=== PATIENT | male | born 1985 | race Two or more races ===

== ENCOUNTER 2017-04-04 19:44 | Emergency (ER) | payer SELFPAY ==
[~2017-04-04] VITALS: Ht 160 cm; Wt 78.0 kg
[2017-04-04 19:50] VITALS: BP 150/96
[2017-04-04] MEDS ORDERED: diphenhydrAMINE HCL 25 MG CAPSULE PO ONE (20:00)
[2017-04-04] MEDS ORDERED: methylPREDNISolone SOD SUCC PF 125 MG/2 ML VIAL. IM ONE (20:00)
[2017-04-04] MEDS ORDERED: PRED20TA PO (20:02)
--- NOTE | 2017-04-04 20:02 | PHYS DOC ---
Past Medical History Past Medical History: No Pertinent History Past Surgical History: No Surgical History Alcohol Use: None Drug Use: None Adult General Chief Complaint Chief Complaint: ITCHING HPI HPI Patient is a 32 year old male presents emergency Department with a rash on bilateral upper extremities that he has had since Mother's Day. He states that it did start on his lower legs in which he had treated for poison shadi. He denies any fever, chills or any nausea vomiting. The rash does appear to be pustular type. There is no current drainage from the sites. The areas do appear to be slightly red. Review of Systems Review of Systems Constitutional: Denies fever or chills [] Eyes: Denies change in visual acuity, redness, or eye pain [] HENT: Denies nasal congestion or sore throat [] Respiratory: Denies cough or shortness of breath [] Cardiovascular: No additional information not addressed in HPI [] GI: Denies abdominal pain, nausea, vomiting, bloody stools or diarrhea [] : Denies dysuria or hematuria [] Musculoskeletal: Denies back pain or joint pain [] Integument: rash denies skin lesions [] Neurologic: Denies headache, focal weakness or sensory changes [] Endocrine: Denies polyuria or polydipsia [] Allergies Allergies Allergies Coded Allergies Type Severity Reaction Last Updated Verified No Known Drug Allergies 08/31/15 No Physical Exam Physical Exam Constitutional: Well developed, well nourished, no acute distress, non-toxic appearance. [] HENT: Normocephalic, atraumatic, bilateral external ears normal, oropharynx moist, no oral exudates, nose normal. [] Eyes: PERRLA, EOMI, conjunctiva normal, no discharge. [] Neck: Normal range of motion, no tenderness, supple, no stridor. [] Cardiovascular:Heart rate regular rhythm, no murmur [] Lungs & Thorax: Bilateral breath sounds clear to auscultation [] Skin: Warm, dry, no erythema, Patient with red raised pustular type rash noted on bilateral upper extremities. No drainage or discharge coming from the site. Back: No tenderness Extremities: No tenderness, no cyanosis, no clubbing, ROM intact, no edema. [] Neurologic: Alert and oriented X 3, normal motor function, normal sensory function, no focal deficits noted. [] Psychologic: Affect normal, judgement normal, mood normal. [] EKG EKG [] Radiology/Procedures Radiology/Procedures [] Course & Med Decision Making Course & Med Decision Making Pertinent Labs and Imaging studies reviewed. (See chart for details) Patient will be provided with a Solu-Medrol IM injection here in the emergency department. He will be instructed to use Benadryl 25 mg at home every 6 hours. He was instructed this medication will cause drowsiness do not take any be alert and oriented. He'll be discharged home with a perception for prednisone. He was also recommended to use calamine lotion on the areas to help dry the pustulous up. A shunt was also encouraged to keep the areas clean dry and cool as this will prevent further itching and irritation. Patient agrees with discharge instructions treatment regimens and follow-up recommendations. [] Dragon Disclaimer Dragon Disclaimer This electronic medical record was generated, in whole or in part, using a voice recognition dictation system. Departure Departure Impression: Primary Impression: Contact dermatitis Disposition: HOME, SELF-CARE Condition: STABLE Referrals: NO PCP (PCP) Patient Instructions: Contact Dermatitis, [id number] Additional Instructions: Keep the area clean and dry. Clean the site with soap and water and apply calamine lotion to the area to help dry up the pustulous. Benadryl 25 mg every 6 hours. This medication will cause drowsiness do not take any be alert and oriented. Medication as prescribed. Keep the areas clean dry and cool. Follow-up to primary care physician in next 5-7 days. Return back to emergency department sign symptoms of become worse. Scripts Prednisone (PREDNISONE) 20 Mg Tablet 40 MG PO DAILY for 7 Days, #14 TAB Prov: EMILY HANNA APRN 04/04/17 EMILY HANNA APRN April 04, 2017 20:02
== END 2017-04-04 20:19 | disposition home or self-care (01) ==
LOC: ER 19:44
DX: L25.9 Unspecified contact dermatitis, unspecified cause (principal)
CPT/HCPCS: 96372; 99283; J2930; Q0163

== ENCOUNTER 2017-10-28 16:19 | Emergency (ER) | payer SELFPAY ==
[~2017-10-28] VITALS: Ht 162.6 cm; Wt 77.1 kg
[~2017-10-28 16:19] MED LIST: PRED20TA PO
--- NOTE | 2017-10-28 16:32 | PHYS DOC ---
Past Medical History Past Medical History: Other Additional Past Medical Histor: HAND INFECTION Past Surgical History: No Surgical History Alcohol Use: None Drug Use: None Adult General Chief Complaint Chief Complaint: SKIN PROBLEM HPI HPI Patient is a 32 year old male presents to the emergency department with complaints of an itching skin rash. Since states that he was cleaning vomiting and came exposed to poison tamara. He developed a rash. He is using Caladryl over- the-counter without relief of symptoms. Review of Systems Review of Systems Constitutional: Denies fever or chills [] Eyes: Denies change in visual acuity, redness, or eye pain [] HENT: Denies nasal congestion or sore throat [] Respiratory: Denies cough or shortness of breath [] Cardiovascular: No additional information not addressed in HPI [] GI: Denies abdominal pain, nausea, vomiting, bloody stools or diarrhea [] : Denies dysuria or hematuria [] Musculoskeletal: Denies back pain or joint pain [] Integument: Rash Neurologic: Denies headache, focal weakness or sensory changes [] Endocrine: Denies polyuria or polydipsia [] All other systems were reviewed and found to be within normal limits, except as documented in this note. Allergies Allergies Allergies Coded Allergies Type Severity Reaction Last Updated Verified No Known Drug Allergies 08/31/15 No Physical Exam Physical Exam Constitutional: Well developed, well nourished, no acute distress, non-toxic appearance. [] HENT: Normocephalic, atraumatic, bilateral external ears normal, oropharynx moist, no oral exudates, nose normal. [] Eyes: PERRLA, EOMI, conjunctiva normal, no discharge. [] Neck: Normal range of motion, no tenderness, supple, no stridor. [] Cardiovascular:Heart rate regular rhythm, no murmur [] Lungs & Thorax: Bilateral breath sounds clear to auscultation [] Abdomen: Bowel sounds normal, soft, no tenderness, no masses, no pulsatile masses. [] Skin: Side of face, left upper extremity with a erythematous base vesicular rash that is pruritic. There is a linear pattern to the rash. Back: No tenderness, no CVA tenderness. [] Extremities: No tenderness, no cyanosis, no clubbing, ROM intact, no edema. [] Neurologic: Alert and oriented X 3, normal motor function, normal sensory function, no focal deficits noted. [] Psychologic: Affect normal, judgement normal, mood normal. [] EKG EKG [] Radiology/Procedures Radiology/Procedures [] Course & Med Decision Making Course & Med Decision Making Pertinent Labs and Imaging studies reviewed. (See chart for details) []Depo-Medrol 80 mg IM. Patient is to use [id number] Benadryl as labeled and is indicated for symptom management Dragon Disclaimer Dragon Disclaimer This electronic medical record was generated, in whole or in part, using a voice recognition dictation system. Departure Departure Impression: Primary Impression: Poison tamara dermatitis Disposition: HOME, SELF-CARE Condition: STABLE Referrals: NO PCP (PCP) [facility] Patient Instructions: Poison Tamara CHRISTOPH SPEAR PLASTER MACHINE OPERATOR Oct 28, 2017 16:32
[2017-10-28] MEDS ORDERED: methylPREDNISolone ACETATE 80 MG/ML VIAL. IM ONE (16:45)
== END 2017-10-28 16:45 | disposition home or self-care (01) ==
LOC: ER 16:19
DX: L23.7 Allergic contact dermatitis due to plants, except food (principal)
CPT/HCPCS: 96372; 99283; J1040

== ENCOUNTER 2018-05-02 15:54 | Emergency (ER) | payer BC | END 2018-05-02 16:21 | disposition home or self-care (01) | LOC: ER 16:21 | DX: L23.7 Allergic contact dermatitis due to plants, except food (principal) | CPT/HCPCS: 99283 ==

== ENCOUNTER 2018-09-03 10:12 | Emergency (ER) | payer BC ==
[~2018-09-03] VITALS: Ht 160 cm; Wt 77.1 kg
[2018-09-03 10:29] VITALS: BP 130/82
--- NOTE | 2018-09-03 10:37 | PHYS DOC ---
Past Medical History Past Medical History: No Pertinent History Additional Past Medical Histor: HAND INFECTION Past Surgical History: No Surgical History Smoking: Less than 1pk/day Alcohol Use: None Drug Use: None Adult General Chief Complaint Chief Complaint: Congestion HPI HPI 33-year-old male presents to ER with complaints of productive cough with dark mucus and chest congestion. Patient reports his son was in the ER last night and diagnosed with bronchitis and pneumonia. Patient reports he is a daily cigarette smoker of less than one pack per day. Patient denies any recent travel , fever or chills, or chest pain. Patient reports he has had regular appetite denying any fatigue. Patient denies urinary symptoms. Review of Systems Review of Systems Constitutional: Denies fever or chills. Denies fatigue Eyes: Denies change in visual acuity, redness, or eye pain [] HENT: Denies nasal congestion or sore throat [] Respiratory: Reports prod. cough with dark phlegm. Denies SOA Cardiovascular: Denies CP GI: Denies abdominal pain, nausea, vomiting, or diarrhea [] : Denies urinary sxs Musculoskeletal: Denies back/neck pain or joint pain [] Integument: Denies rash, swelling or skin lesions [] Neurologic: Denies headache, focal weakness or sensory changes [] All other systems were reviewed and found to be within normal limits, except as documented in this note. Current Medications Current Medications Current Medications Medications (Trade) Dose Ordered Sig/Delio Start Time Stop Time Status Last Admin Dose Admin Albuterol/ Ipratropium (Duoneb) 3 ml 1X ONCE 09/03/18 10:45 09/03/18 10:46 DC 09/03/18 10:41 3 ML Prednisone (Prednisone) 50 mg 1X ONCE 09/03/18 10:45 09/03/18 10:46 DC 09/03/18 10:55 50 MG Allergies Allergies Allergies Coded Allergies Type Severity Reaction Last Updated Verified No Known Drug Allergies 08/31/15 No Physical Exam Physical Exam Constitutional: Well developed, well nourished, no acute distress, non-toxic appearance. [] HENT: Normocephalic, atraumatic, bilateral ears normal, mucous membranes pink/ moist, no oral exudates, nose normal. [] Eyes: pupils equal, conjunctiva normal, no discharge. [] Neck: Normal range of motion, no tenderness, supple, no gross adenopathy Cardiovascular:Heart rate regular rhythm, no murmur [] Lungs & Thorax: Bilateral breath sounds clear to auscultation- breath sounds bilateral diminished in all lobes with less air movement in bases. Respirations are equal and nonlabored and patient is speaking in full sentences. Abdomen: Bowel sounds normal, soft, no tenderness Skin: Warm, dry, no erythema, no rash. [] Back: No tenderness, no CVA tenderness. [] Extremities: No tenderness, no cyanosis, no clubbing, ROM intact, no edema. [] Neurologic: Alert and oriented X 3, normal motor function, normal sensory function, no focal deficits noted. [] Psychologic: Affect normal, judgement normal, mood normal. [] Current Patient Data Vital Signs Vital Signs Date Time Temp Pulse Resp B/P (MAP) Pulse Ox O2 Delivery O2 Flow Rate FiO2 09/03/18 10:41 Room Air 09/03/18 10:29 98.4 66 18 130/82 (98) 97 98.4 EKG EKG [] Radiology/Procedures Radiology/Procedures PROCEDURE: CHEST PA & LATERAL Examination: CHEST PA LATERAL History: PRODUCTIVE COUGH, CONGESTION X 2 DAYS Comparison/Correlation: None Findings: PA and lateral views of chest were obtained. Heart size and pulmonary vasculature are normal. No infiltrate or pleural effusion. Bony structures are unremarkable. No pneumothorax. Impression: No active disease. Electronically signed by: Arnulfo Tillman MD (09/03/2018 10:53 AM) [facility] DICTATED and SIGNED BY: ARNULFO TILLMAN MD DATE: 09/03/18 1052 Course & Med Decision Making Course & Med Decision Making Pertinent Imaging studies reviewed. (See chart for details) 1045: On reevaluation following DuoNeb treatment patient reports his breathing/ chest congestion has improved. Patient has increased air movement through all lung elkins. Patient does have occasional productive cough. Patient denies any chest pain at this time. Discussed chest x-ray with no acute findings. Discussed plans for home discharge with smoking cessation discussed. Patient will be provided with Medrol Dosepak and Z-Armando. Education provided on medications options were discussed. Patient encouraged to increase fluid intake. During discussion pt was in no visible distress with equal/nonlabored resp. Dragon Disclaimer Dragon Disclaimer This electronic medical record was generated, in whole or in part, using a voice recognition dictation system. Departure Departure Impression: Primary Impression: Cough Additional Impression: Bronchitis Disposition: 01 HOME, SELF-CARE Condition: STABLE Referrals: NO PCP (PCP) Patient Instructions: Bronchitis, Cough, Adult, Smoking Cessation Additional Instructions: Drink plenty of fluids and avoid smoking. Tylenol and/or ibuprofen as needed for pain/fever as directed on container. Scripts Methylprednisolone (MEDROL) 4 Mg Tab.ds.pk 1 PKG PO UD, #1 PKG 0 Refills Prov: FRED CANLAES APRN 09/03/18 Azithromycin (ZITHROMAX) 250 Mg Tablet 1 PKG PO UD, #6 TAB 0 Refills Prov: FRED CANALES APRN 09/03/18 Problem Qualifiers FRED CANALES APRN Sep 03, 2018 10:37
[2018-09-03] MEDS ORDERED: predniSONE 10 MG TABLET PO ONE (10:45)
[2018-09-03] MEDS ORDERED: IPRATRPIUM/ALBUTEROL 0.5/2.5MG 3 ML NEBU. NEB ONE (10:45)
--- NOTE | 2018-09-03 10:56 | RAD ---
Examination: CHEST PA LATERAL History: PRODUCTIVE COUGH, CONGESTION X 2 DAYS Comparison/Correlation: None Findings: PA and lateral views of chest were obtained. Heart size and pulmonary vasculature are normal. No infiltrate or pleural effusion. Bony structures are unremarkable. No pneumothorax. Impression: No active disease. Electronically signed by: Arnulfo Fitzgerald MD (09/03/2018 10:53 AM) [facility]
[2018-09-03] MEDS ORDERED: AZIT250T PO (11:01)
[2018-09-03] MEDS ORDERED: METH4TAB2 PO (11:01)
== END 2018-09-03 11:39 | disposition home or self-care (01) ==
LOC: ER 10:12
DX: J40 Bronchitis, not specified as acute or chronic (principal); F17.210 Nicotine dependence, cigarettes, uncomplicated
CPT/HCPCS: 71046; 94640; 99284; J7512; J7620

== ENCOUNTER 2018-10-20 10:58 | Emergency (ER) | payer BC ==
[~2018-10-20] VITALS: Ht 160 cm; Wt 74.8 kg
[~2018-10-20 10:58] MED LIST changes: +AZIT250T PO; +METH4TAB2 PO
[2018-10-20 11:05] VITALS: BP 138/79
[2018-10-20 11:45] LABS: INFLUENZA A PATIENT NEGATIVE (NEGATIVE); INFLUENZA B PATIENT NEGATIVE (NEGATIVE)
[2018-10-20] MEDS ORDERED: BENZ100C PO (12:15)
[2018-10-20] MEDS ORDERED: PROAIR HFA8.5 GM INH (12:15)
--- NOTE | 2018-10-20 12:15 | PHYS DOC ---
Past Medical History Past Medical History: No Pertinent History Additional Past Medical Histor: HAND INFECTION Past Surgical History: No Surgical History Additional Information: 5 cigarettes daily Alcohol Use: None Drug Use: None Adult General Chief Complaint Chief Complaint: FLU SYMPTOM HPI HPI Patient is a 33 year old [f__sex] who presents with [] Review of Systems Review of Systems Constitutional: Denies fever or chills [] Eyes: Denies change in visual acuity, redness, or eye pain [] HENT: Denies nasal congestion or sore throat [] Respiratory: Denies cough or shortness of breath [] Cardiovascular: No additional information not addressed in HPI [] GI: Denies abdominal pain, nausea, vomiting, bloody stools or diarrhea [] : Denies dysuria or hematuria [] Musculoskeletal: Denies back pain or joint pain [] Integument: Denies rash or skin lesions [] Neurologic: Denies headache, focal weakness or sensory changes [] Endocrine: Denies polyuria or polydipsia [] All other systems were reviewed and found to be within normal limits, except as documented in this note. Allergies Allergies Allergies Coded Allergies Type Severity Reaction Last Updated Verified No Known Drug Allergies 08/31/15 No Physical Exam Physical Exam Constitutional: Well developed, well nourished, no acute distress, non-toxic appearance. [] HENT: Normocephalic, atraumatic, bilateral external ears normal, oropharynx moist, no oral exudates, nose normal. [] Eyes: PERRLA, EOMI, conjunctiva normal, no discharge. [] Neck: Normal range of motion, no tenderness, supple, no stridor. [] Cardiovascular:Heart rate regular rhythm, no murmur [] Lungs & Thorax: Bilateral breath sounds clear to auscultation [] Abdomen: Bowel sounds normal, soft, no tenderness, no masses, no pulsatile masses. [] Skin: Warm, dry, no erythema, no rash. [] Back: No tenderness, no CVA tenderness. [] Extremities: No tenderness, no cyanosis, no clubbing, ROM intact, no edema. [] Neurologic: Alert and oriented X 3, normal motor function, normal sensory function, no focal deficits noted. [] Psychologic: Affect normal, judgement normal, mood normal. [] Current Patient Data Vital Signs Vital Signs Date Time Temp Pulse Resp B/P (MAP) Pulse Ox O2 Delivery O2 Flow Rate FiO2 10/20/18 11:05 100.0 95 18 138/79 (98) 97 Room Air 100.0 Lab Values Laboratory Tests Test 10/20/18 11:10 Influenza Type A Antigen Negative (NEGATIVE) Influenza Type B Antigen Negative (NEGATIVE) EKG EKG [] Radiology/Procedures Radiology/Procedures [] Course & Med Decision Making Course & Med Decision Making Pertinent Labs and Imaging studies reviewed. (See chart for details) [] Dragon Disclaimer Dragon Disclaimer This electronic medical record was generated, in whole or in part, using a voice recognition dictation system. Departure Departure Impression: Primary Impression: Cough Additional Impression: URI (upper respiratory infection) Disposition: HOME, SELF-CARE Condition: STABLE Referrals: NO PCP (PCP) Patient Instructions: Upper Respiratory Infection, Adult, [id number] Additional Instructions: Fill prescription(s) and use as directed. Recommend he use a Cool mist humidifier in room at bedtime. Tylenol or ibuprofen prn pain/fever. Increase clear fluids. Avoid triggers such as smoke, fragrance, dust, and pollen. Follow- up with your primary care doctor if symptoms persist, return to the ER symptoms worsen. Scripts Benzonatate (TESSALON PERLE) 100 Mg Capsule 1 CAP PO TID PRN for COUGH, #21 CAP 0 Refills Prov: KHARI RIZVI CLINICAL SCIENCE CONSULTANT 10/20/18 Albuterol Sulfate (PROAIR HFA INHALER) 8.5 Gm Hfa.aer.ad 2 PUFF INH PRN Q6HRS PRN for COUGH for 10 Days, #1 INHALER 0 Refills Prov: KHARI RIZVI CLINICAL SCIENCE CONSULTANT 10/20/18 Problem Qualifiers Additional Impression: URI (upper respiratory infection) URI type: unspecified URI Qualified Codes: J06.9 - Acute upper respiratory infection, unspecified KHARI RIZVI CLINICAL SCIENCE CONSULTANT Oct 20, 2018 12:15
== END 2018-10-20 12:20 | disposition home or self-care (01) ==
LOC: ER 10:58
DX: J06.9 Acute upper respiratory infection, unspecified (principal); F17.210 Nicotine dependence, cigarettes, uncomplicated
CPT/HCPCS: 87804; 99283

== ENCOUNTER 2018-10-23 08:25 | Emergency (ER) | payer BC ==
[~2018-10-23] VITALS: Ht 160 cm; Wt 74.8 kg
[~2018-10-23 08:25] MED LIST changes: +BENZ100C PO; +PROAIR HFA8.5 GM INH
[2018-10-23 08:35] VITALS: BP 145/80
--- NOTE | 2018-10-23 08:43 | PHYS DOC ---
Past Medical History Past Medical History: No Pertinent History Additional Past Medical Histor: HAND INFECTION Past Surgical History: No Surgical History Alcohol Use: None Drug Use: None Adult General Chief Complaint Chief Complaint: COUGH HPI HPI Patient is a 33 year old male presents for evaluation of cough and fever. He was seen in this is room on , had a negative flu swab. He was discharged home with Tessalon Perles and albuterol inhaler. States he did not potato picker the Tessalon Perles and and he has used the inhaler 2 or 3 times only. He is continuing to have intermittent fevers. Has not taken any medications prior to coming to the emergency room today. States he came back to the emergency room today to make sure that the symptoms have not progressed into pneumonia as his cough has worsened. He does smoke cigarettes. Review of Systems Review of Systems Constitutional: + FEVER [] Eyes: Denies change in visual acuity, redness, or eye pain [] HENT: Denies nasal congestion or sore throat [] Respiratory: Denies shortness of breath , + COUGH-DRY [] Cardiovascular: No additional information not addressed in HPI [] GI: Denies abdominal pain, nausea, vomiting, bloody stools or diarrhea [] : Denies dysuria or hematuria [] Musculoskeletal: Denies back pain or joint pain [] Integument: Denies rash or skin lesions [] Neurologic: Denies headache, focal weakness or sensory changes [] Endocrine: Denies polyuria or polydipsia [] All other systems were reviewed and found to be within normal limits, except as documented in this note. Current Medications Current Medications Current Medications Medications (Trade) Dose Ordered Sig/Delio Start Time Stop Time Status Last Admin Dose Admin Albuterol/ Ipratropium (Duoneb) 3 ml 1X ONCE 10/23/18 09:15 10/23/18 09:16 DC 10/23/18 08:57 3 ML Allergies Allergies Allergies Coded Allergies Type Severity Reaction Last Updated Verified No Known Drug Allergies 08/31/15 No Physical Exam Physical Exam Constitutional: Well developed, well nourished, no acute distress, non-toxic appearance. [] HENT: Normocephalic, atraumatic, bilateral external ears normal, oropharynx moist, no oral exudates, nose normal. [] Eyes: PERRLA, EOMI, conjunctiva normal, no discharge. [] Neck: Normal range of motion, no tenderness, supple, no stridor. [] Cardiovascular:Heart rate regular rhythm, no murmur [] Lungs & Thorax: SLIGHT WHEEZE IN LEFT BASE [] Skin: Warm, dry, no erythema, no rash. [] Neurologic: Alert and oriented X 3, normal motor function, normal sensory function, no focal deficits noted. [] Psychologic: Affect normal, judgement normal, mood normal. [] Current Patient Data Vital Signs Vital Signs Date Time Temp Pulse Resp B/P (MAP) Pulse Ox O2 Delivery O2 Flow Rate FiO2 10/23/18 08:59 96 Room Air 10/23/18 08:35 98.4 69 18 145/80 (101) 98.4 EKG EKG [] Radiology/Procedures Radiology/Procedures [PROCEDURE: CHEST PA & LATERAL Chest radiograph 10/23/2018 8:42 AM INDICATION: Cough, fever COMPARISON: September 03, 2018 TECHNIQUE: Frontal and lateral views of the chest are provided. FINDINGS: The cardiomediastinal silhouette is within normal limits. There are no pleural effusions. There is no pulmonary vascular congestion. There is no pneumothorax. The lungs are clear. No significant osseous abnormality is identified. IMPRESSION: No acute cardiopulmonary process. Electronically signed by: Amparo Gaspar MD (10/23/2018 8:50 AM) [facility] ] Course & Med Decision Making Course & Med Decision Making Pertinent Labs and Imaging studies reviewed. (See chart for details) [Chest x-ray is negative, vital signs stable, patient is afebrile and nontoxic in appearance. Recommend he fill the prescription for Tessalon Perles, start using the inhaler every 4 hours and add prednisone prescription today. Smoking cessation discussed. Follow-up with primary care doctor 2-3 days.] Staff Physician Addendum: I was working in the ER during the course of this patient's visit. I was available for consultation as needed, but I was not directly involved in the care of this patient. Dragon Disclaimer Dragon Disclaimer This electronic medical record was generated, in whole or in part, using a voice recognition dictation system. Departure Departure Impression: Primary Impression: Bronchitis Disposition: 01 HOME, SELF-CARE Condition: STABLE Referrals: NO PCP (PCP) Patient Instructions: Acute Bronchitis, [id number] Scripts Prednisone (PREDNISONE) 50 Mg Tablet 1 TAB PO DAILY, #5 TAB Prov: PAULINO TELLEZ APRN 10/23/18 PAULINO TELLEZ APRN Oct 23, 2018 08:43 JAQUELIN GIORDANO MD Oct 23, 2018 10:57
--- NOTE | 2018-10-23 08:53 | RAD ---
Chest radiograph 10/23/2018 8:42 AM INDICATION: Cough, fever COMPARISON: September 03, 2018 TECHNIQUE: Frontal and lateral views of the chest are provided. FINDINGS: The cardiomediastinal silhouette is within normal limits. There are no pleural effusions. There is no pulmonary vascular congestion. There is no pneumothorax. The lungs are clear. No significant osseous abnormality is identified. IMPRESSION: No acute cardiopulmonary process. Electronically signed by: Amparo Gaspar MD (10/23/2018 8:50 AM) [facility]
[2018-10-23] MEDS ORDERED: PRED50TA PO (09:09)
[2018-10-23] MEDS ORDERED: IPRATRPIUM/ALBUTEROL 0.5/2.5MG 3 ML NEBU. NEB ONE (09:15)
== END 2018-10-23 09:10 | disposition home or self-care (01) ==
LOC: ER 08:25
DX: J40 Bronchitis, not specified as acute or chronic (principal); F17.210 Nicotine dependence, cigarettes, uncomplicated
CPT/HCPCS: 71046; 94640; 99283; J7620